=== PATIENT | male | born 1980 | race Caucasian/White ===

== ENCOUNTER → 2017-03-05 | Outpatient (CLI) | payer MEDICAID ==
[~2017-03-05] MED LIST: ACC15GT EXT; ACC15GT TOP; AZIT-21 PO; CPR500T PO; DEXALENT PO; ESOM20CA32 PO; HYDR-229 PO; HYDR-757; HYDR1TAB PO; LEVO150T6; LEVO175T2 PO; LEVO75TA57; LTRS15C TOP; MAGN-47; NFPRILOC40 PO; NST15O TOP; NYST15CR3 TP; OMEP1CAP10; PEG250PW; PRED20TA PO; PRM25T PO; SCR1T1; SULF-222 PO; VALA100033 PO
--- NOTE | 2017-03-05 14:59 | Diagnostic Imaging Report ---
PROCEDURE: CT abdomen without contrast. TECHNIQUE: Multiple contiguous axial images were obtained through the abdomen without the use of intravenous contrast. INDICATION: Abdominal pain. Status post hernia repair. FINDINGS: The lung bases appear clear. The liver, the spleen, the pancreas, and adrenal glands appear unremarkable. There is a 3 mm stone in the lower pole of the right kidney. No hydronephrosis. The abdominal aorta is normal in caliber. No para-aortic significantly enlarged lymph nodes are seen. There is suggestion of hernia repair with mesh in the supraumbilical region. There is slight stranding seen at this site presumably related to scarring and mild bulge anteriorly as well is seen without recurrence of hernia identified. The visualized bowel loops within the abdomen demonstrate no significant abnormality. IMPRESSION: 1. There is evidence of ventral hernia repair with mesh with mild anterior bulge along its supraumbilical region and stranding, presumably related to scarring with no evidence of hernia recurrence. 2. A 3 mm nonobstructive stone in the right kidney. Dictated by: Dictated on workstation # [id number]
== END ==
LOC: RAD 12:22
PROVIDERS: ATTEND Surgery
DX: R10.33 Periumbilical pain (principal); N20.0 Calculus of kidney; Z98.890 Other specified postprocedural states
CPT/HCPCS: 74150

== ENCOUNTER 2017-06-14 20:01 | Emergency (ER) | payer MEDICAID ==
[~2017-06-14] VITALS: Ht 167.6 cm; Wt 147.4 kg
--- OUTSIDE RECORDS SUMMARY | 2017-06-14 20:08 | XMS REPORT | Continuity of Care Document ---
Author Author [facility] Organization [facility] Address Unknown Phone Unavailable Allergies Active Description Code Type Severity Reaction Onset Reported/Identified Relationship to Patient Clinical Status Yes iodine [id number] Drug Allergy Moderate HIVES 04/22/2006 Medications There is no data. Problems Date Dx Coded Attending Type Code Diagnosis Diagnosed By 10/20/2009 Ot 787.91 10/20/2009 Ot 789.09 10/31/2009 Ot 553.21 11/16/2009 Ot 591 11/16/2009 Ot 592.1 11/16/2009 Ot 787.03 05/02/2010 Ot 598.9 05/02/2010 Ot 607.1 09/06/2010 Ot 278.00 09/06/2010 Ot 530.81 09/06/2010 Ot 553.3 09/16/2011 Ot 054.10 GENITAL HERPES NOS 09/16/2011 Ot 789.09 ABDOMINAL PAIN, OTHER SPECIFIED SITE 08/27/2012 Ot 553.20 VENTRAL HERNIA NOS 08/27/2012 Ot V74.8 SCREEN- BACTERIAL DIS NEC 09/01/2012 Ot 792.1 ABN FIND- STOOL CONTENTS 11/26/2012 ALEXANDRE MUNSON DO Ot 607.89 DISORDER OF PENIS NEC 11/13/2013 MARLYN ROSA, MOLLY Hicks Ot 054.10 GENITAL HERPES NOS 11/13/2013 MOLLY CLINE MD Ot 244.9 HYPOTHYROIDISM NOS 11/13/2013 MOLLY CLINE MD Ot 278.00 OBESITY, NOS 11/13/2013 MOLLY CLINE MD Ot 530.81 ESOPHAGEAL REFLUX 11/13/2013 MOLLY CLINE MD Ot 553.3 DIAPHRAGMATIC HERNIA 11/13/2013 MOLLY CLINE MD Ot 607.1 BALANOPOSTHITIS 11/13/2013 MOLLY CLINE MD Ot 608.9 MALE GENITAL DIS NOS 11/13/2013 MOLLY CLINE MD Ot V85.43 BODY MASS INDEX 50.0-59.9, ADULT 11/17/2013 RADHA ROSA, KRYS Yadav Ot 789.00 ABDOMINAL PAIN, UNSPECIFIED SITE 11/17/2013 RADHA ROSA, KRYS Yadav Ot V57.1 PHYSICAL THERAPY NEC 11/21/2014 CLARA OJEDA FINANCIAL ASSISTANCE ADVISOR Ot 786.2 COUGH 01/02/2015 Ot 553.21 01/02/2015 Ot V72.83 01/02/2015 Ot V74.8 01/02/2015 Ot 598.9 01/02/2015 Ot 607.1 01/02/2015 Ot V72.63 01/02/2015 Ot 789.03 01/02/2015 Ot 553.1 01/02/2015 Ot 553.3 01/02/2015 Ot 571.8 01/02/2015 Ot 789.00 01/02/2015 Ot 553.20 01/02/2015 Ot V72.63 01/02/2015 Ot V74.8 01/02/2015 CLARA OJEDA FINANCIAL ASSISTANCE ADVISOR Ot 682.6 CELLULITIS OF LEG 01/02/2015 CLARA OJEDA FINANCIAL ASSISTANCE ADVISOR Ot 709.9 SKIN DISORDER NOS 08/12/2015 Ot 598.9 08/12/2015 Ot 607.1 08/12/2015 Ot V72.63 08/12/2015 Ot 789.03 08/12/2015 Ot 553.1 08/12/2015 Ot 553.3 08/12/2015 Ot 571.8 08/12/2015 Ot 789.00 08/12/2015 Ot 553.20 08/12/2015 Ot V72.63 08/12/2015 Ot V74.8 08/24/2015 RADHA ROSA, KRYS Yadav Ot R10.30 03/05/2017 Ot 553.1 UMBILICAL HERNIA 03/05/2017 Ot 553.3 DIAPHRAGMATIC HERNIA 03/05/2017 Ot 571.8 CHRONIC LIVER DIS NEC 03/05/2017 Ot 789.00 ABDOMINAL PAIN, UNSPECIFIED SITE 03/05/2017 Ot 553.20 VENTRAL HERNIA NOS 03/05/2017 Ot V72.63 PRE- PROCEDURAL LABORATORY EXAMINATION 03/05/2017 Ot V74.8 SCREEN- BACTERIAL DIS NEC 03/05/2017 RADHA ROSA, KRYS Yadav Ot R10.30 LOWER ABDOMINAL PAIN, UNSPECIFIED 03/06/2017 GARCIA KRYS ROSA Ot N20.0 CALCULUS OF KIDNEY 03/06/2017 KRYS GARCIA MD Ot R10.33 PERIUMBILICAL PAIN 03/06/2017 KRYS GARCIA MD Ot Z98.890 OTHER SPECIFIED POSTPROCEDURAL STATES 03/27/2017 KRYS GARCIA MD Ot N20.0 CALCULUS OF KIDNEY 03/27/2017 KRYS GARCIA MD Ot R10.33 PERIUMBILICAL PAIN 03/27/2017 KRYS GARCIA MD Ot Z98.890 OTHER SPECIFIED POSTPROCEDURAL STATES Procedures There is no data. Results There is no data. Encounters ACCT No. Visit Date/Time Discharge Status Pt. Type Provider Facility Loc./Unit Complaint [id number] 03/05/2017 12:22:00 03/05/2017 23:59:59 CLS Outpatient KRYS GARCIA MD [facility] RAD UMBILICAL PAIN R10.33 [id number] 08/12/2015 10:57:00 08/12/2015 23:59:59 CLS Outpatient KRYS GARCIA MD [facility] RAD ABD PAIN [id number] 01/02/2015 21:49:00 01/02/2015 22:36:00 DIS Emergency CLARA OJEDA APRN [facility] ER PAIN/SWELLING LEFT LEG [id number] 11/21/2014 18:11:00 11/21/2014 19:24:00 DIS Emergency CLARA OJEDA APRN [facility] ER COUGH;DIZZINESS [id number] 11/05/2013 12:54:00 11/17/2013 13:55:00 DIS Outpatient KRYS GARCIA MD [facility] REHAB ABDOMINAL PAIN [id number] 11/13/2013 20:11:00 11/13/2013 20:35:00 DIS Emergency MOLLY CLINE MD [facility] ER GENITAL PAIN [id number] 01/24/2013 10:06:00 01/24/2013 23:59:59 CLS Outpatient [id number] 11/25/2012 22:05:00 11/26/2012 01:59:00 DIS Emergency ALEXANDRE MUNSON DO [facility] ER URINARY PAIN [id number] 01/02/2015 21:48:00 Document Registration [id number] 09/01/2012 15:33:00 Document Registration [id number] 08/27/2012 07:56:00 Document Registration [id number] 08/04/2012 09:16:00 Document Registration [id number] 07/08/2012 08:31:00 Document Registration [id number] 09/15/2011 20:41:00 Document Registration [id number] 05/31/2011 15:10:00 Document Registration [id number] 09/06/2010 06:44:00 Document Registration [id number] 05/02/2010 05:39:00 Document Registration [id number] 04/27/2010 10:31:00 Document Registration [id number] 11/16/2009 12:01:00 Document Registration [id number] 10/31/2009 05:48:00 Document Registration [id number] 10/27/2009 11:39:00 Document Registration [id number] 10/19/2009 21:43:00 Document Registration
[2017-06-14] MEDS ORDERED: COLE1TAB (20:21)
[2017-06-14] MEDS ORDERED: PANT40TA3 (20:21)
--- NOTE | 2017-06-14 20:33 | ED GU-Male ---
General Chief Complaint: -Male Stated Complaint: URINATING BLOOD Nursing Triage Note: HEMATURIA/DYSURIA Source: patient, other (ex-) Exam Limitations: no limitations History of Present Illness Time seen by provider: 20:25 Initial Comments Patient presents to ER by private conveyance with a chief complaint that this afternoon around 4:00 when he went to the bathroom he was sitting down and when he got up he noticed some red blood tinged water in the stool. His bowel movement he was not constipated nor straining for it and did not have any blood mixed in it. He does not know if he has any history of hemorrhoids. He denies any recent history of constipation says he has a bowel movement about every day or so and does not have to work hard [place]. He does not have any dysuria or discharge. He had his ex- come over and examine him and she said there were some cuts on his penis behind the metzger. He says he had a colonoscopy about one month ago and was told everything was normal. He is not having any rectal pain has not seen any blood when wiping. He is not sexually active but prefers company of women. Allergies and Home Medications Allergies Coded Allergies: iodine (Unverified Allergy, Intermediate, HIVES, 04/22/06) PT. AND FAMILY PRESENT, BELIEVE THE HIVES WERE AFTER AN IV IODINE PROCEDURE AND NOT TOPICAL Home Medications Colestipol HCl 1 Gm Tablet, (Reported) Levothyroxine Sodium 150 Mcg Tablet, #30 (Reported) Nystatin 1 Each Powder.ea., 1 EACH MC QID for 10 Days, #1 Ref 0 Prescribed by: IVANNA HUANG on 06/14/172107 Pantoprazole Sodium 40 Mg Tablet., (Reported) Sulfamethoxazole/Trimethoprim 1 Each Tablet, 1 EACH PO BID for 7 Days, #14 Ref 0 Prescribed by: IVANNA HUANG on 06/14/172107 Constitutional: No chills, No diaphoresis, No fever, No malaise EENTM: No hearing loss, No ear pain Respiratory: No cough, No short of breath Cardiovascular: No chest pain, No palpitations, No syncope Gastrointestinal: No abdominal pain, No constipation, No diarrhea, No nausea, No vomiting Genitourinary: denies burning, denies discharge Musculoskeletal: No back pain, No joint pain Skin: No pruritus, No rash Past Tjjaief-Wqrbvy-Gyesxa Hx Patient Social History Alcohol Use: Denies Use Recreational Drug Use: No Smoking Status: Current Everyday Smoker Type Used: Cigarettes 2nd Hand Smoke Exposure: Yes Recent Foreign Travel: No Contact w/Someone Who Travel: No Recent Infectious Disease Expo: No Recent Hopitalizations: No Immunizations Up To Date Date of Influenza Vaccine: Aug 15, 2012 Seasonal Allergies Seasonal Allergies: No Surgeries History of Surgeries: Yes (CIRCUMCISED/RECIRCUMCISED) Respiratory History of Respiratory Disorde: No Cardiovascular History of Cardiac Disorders: No Neurological History of Neurological Disord: No Reproductive System Sexually Transmitted Disease: Yes (HERPES) Genitourinary History of Genitourinary Disor: No Gastrointestinal History of Gastrointestinal Di: Yes Gastrointestinal Disorders: Gastroesophageal Reflux, Hiatal Hernia Musculoskeletal History of Musculoskeletal Dis: No Endocrine History of Endocrine Disorders: Yes Endocrine Disorders: Hypothyroidsim HEENT History of HEENT Disorders: No Cancer History of Cancer: No Psychosocial History of Psychiatric Problem: No Integumentary History of Skin or Integumenta: Yes Skin/Integumentary Disorders: Herpes Blood Transfusions History of Blood Disorders: No Physical Exam Vital Signs Vital Sign - Last 12Hours 06/14/17 20:15 Temp 98.2 Pulse 84 Resp 16 B/P (MAP) 114/79 (91) Pulse Ox 98 O2 Delivery Room Air Capillary Refill : Less Than 3 Seconds General Appearance: WD/WN, no apparent distress, obese HEENT: PERRL/EOMI, pharynx normal Cardiovascular: normal peripheral pulses, regular rate, rhythm Respiratory: no respiratory distress, no accessory muscle use Gastrointestinal: normal bowel sounds, non tender, soft, no organomegaly, other (obese) Rectal: normal exam, normal rectal tone, heme negative stool, No mass, other ( soft stool in the rectal vault) Male: No testicular tenderness, other (distal third of the penis and metzger is erythematous with caseous, malodorous smegma. No discharge, erythematous portion of penis is tender to palpation.) Genital/Rectal: normal rectal exam, heme negative stool, normal rectal tone, other (circumcised male) Back: normal inspection, no CVA tenderness Extremities: normal inspection, normal capillary refill Neurologic/Psychiatric: alert, normal mood/affect, oriented x 3 Skin: warm/dry, damp (around the penis) Progress/Results/Core Measures Suspected Sepsis Recent Fever Within 48 Hours: No Infection Criteria Present: None New/Unexplained Altered Menta: No Sepsis Screen: No Definite Risk Sepsis Diagnosis: SIRS Temperature:98.2 Pulse: 84 Respiratory Rate: 16 Laboratory Tests 06/14/17 21:05: White Blood Count 9.0 Blood Pressure 114 /79 Mean: 91 Laboratory Tests 06/14/17 21:05: Creatinine 1.05, Platelet Count 210, Total Bilirubin 0.7 Results/Orders Lab Results Laboratory Tests Test 06/14/17 20:20 06/14/17 21:05 Range/Units Urine Color YELLOW Urine Clarity CLEAR Urine pH 6 5-9 Urine Specific [place] 1.015 L 1.016-1.022 Urine Protein NEGATIVE NEGATIVE Urine Glucose (UA) NEGATIVE NEGATIVE Urine Ketones NEGATIVE NEGATIVE Urine Nitrite NEGATIVE NEGATIVE Urine Bilirubin NEGATIVE NEGATIVE Urine Urobilinogen NORMAL NORMAL MG/DL Urine Leukocyte Esterase 1+ H NEGATIVE Urine RBC (Auto) 4+ H NEGATIVE Urine RBC 25-50 H /HPF Urine WBC 2-5 /HPF Urine Squamous Epithelial Cells 2-5 /HPF Urine Crystals NONE /LPF Urine Bacteria NONE /HPF Urine Casts NONE /LPF Urine Mucus SMALL H /LPF Urine Culture Indicated NO White Blood Count 9.0 4.3-11.0 10^3/uL Red Blood Count 4.63 4.35-5.85 10^6/uL Hemoglobin 15.6 13.3-17.7 G/DL Hematocrit 44 40-54 % Mean Corpuscular Volume 96 80-99 FL Mean Corpuscular Hemoglobin 34 25-34 PG Mean Corpuscular Hemoglobin Concent 35 32-36 G/DL Red Cell Distribution Width 13.3 10.0-14.5 % Platelet Count 210 130-400 10^3/uL Mean Platelet Volume 10.2 7.4-10.4 FL Neutrophils (%) (Auto) 65 42-75 % Lymphocytes (%) (Auto) 25 12-44 % Monocytes (%) (Auto) 7 0-12 % Eosinophils (%) (Auto) 3 0-10 % Basophils (%) (Auto) 0 0-10 % Neutrophils # (Auto) 5.8 1.8-7.8 X 10^3 Lymphocytes # (Auto) 2.2 1.0-4.0 X 10^3 Monocytes # (Auto) 0.6 0.0-1.0 X 10^3 Eosinophils # (Auto) 0.3 0.0-0.3 10^3/uL Basophils # (Auto) 0.0 0.0-0.1 10^3/uL Sodium Level 138 135-145 MMOL/L Potassium Level 4.2 3.6-5.0 MMOL/L Chloride Level 103 98-107 MMOL/L Carbon Dioxide Level 23 21-32 MMOL/L Anion Gap 12 5-14 MMOL/L Blood Urea Nitrogen 10 7-18 MG/DL Creatinine 1.05 0.60-1.30 MG/DL Estimat Glomerular Filtration Rate > 60 BUN/Creatinine Ratio 10 Glucose Level 97 70-105 MG/DL Calcium Level 9.2 8.5-10.1 MG/DL Total Bilirubin 0.7 0.1-1.0 MG/DL Aspartate Amino Transf (AST/SGOT) 44 H 5-34 U/L Alanine Aminotransferase (ALT/SGPT) 81 H 0-55 U/L Alkaline Phosphatase 75 40-136 U/L Total Protein 7.8 6.4-8.2 GM/DL Albumin 3.9 3.2-4.5 GM/DL My Orders Orders - IVANNA HUANG Ua Culture If Indicated (06/14/17 20:04) Occult Blood Stool (06/14/17 20:47) Neis Daniel Dna Urine Test (06/14/17 21:00) Chlamydia Dna Urine Test (06/14/17 21:00) Cbc With Automated Diff (06/14/17 21:00) Comprehensive Metabolic Panel (06/14/17 21:00) Vital Signs/I&O Vital Sign - Last 12Hours 06/14/17 20:15 Temp 98.2 Pulse 84 Resp 16 B/P (MAP) 114/79 (91) Pulse Ox 98 O2 Delivery Room Air Capillary Refill : Less Than 3 Seconds Blood Pressure Mean: 91 Progress Note : Time: 21:04 Progress Note Suspect tinea cruris and will prescribe a powder as he has moisture issues in that region. He does have red blood cells seen in the blood but not microscopically and stool so if his laboratory workup is unremarkable then this can be worked up outpatient by his primary care doctor. I have discussed this with the patient and he is okay with this plan. We will empirically cover him with antibiotics and see if this makes any difference in his symptoms. Departure Impression Impression: Primary Impression: Hematuria Qualified Codes: R31.0 - Gross hematuria Additional Impressions: Urinary tract infection Qualified Codes: N30.01 - Acute cystitis with hematuria Tinea cruris Disposition: HOME, SELF-CARE Condition: Stable Departure-Patient Inst. Decision time for Depature: 21:53 Referrals: ARLET BRADEN MD (PCP/Family) Primary Care Physician Patient Instructions: Blood in the Urine (Hematuria), Adult (DC) Add. Discharge Instructions: Drink plenty of fluids and follow-up next week with your primary care physician. We will cover you with some antibiotics to be taken 1 tablet twice a day for 7 days. You will need to apply the nystatin powder to the red, moist irritated areas in her groin 4 times daily as needed. Clean thoroughly with soap and water and allow the area to dry well before putting clothes on. All discharge instructions reviewed with patient and/or family. Voiced understanding. Scripts Sulfamethoxazole/Trimethoprim (Bactrim Ds Tablet) 1 Each Tablet 1 EACH PO BID for 7 Days, #14 TAB 0 Refills Prov: IVANNA HUANG 06/14/17 Nystatin (Nystatin) 1 Each Powder.ea. 1 EACH MC QID for 10 Days, #1 UNIT 0 Refills Prov: IVANNA HUANG 06/14/17 Copy Copies To 1: CLARITZA MCLAUGHLIN DO IVANNA HUANG Jun 14, 2017 20:32
[2017-06-14 20:46] LABS: BILIRUBIN,URINE NEGATIVE (NEGATIVE); CLARITY,URINE CLEAR; COLOR,URINE YELLOW; GLUCOSE, URINE (UA) NEGATIVE (NEGATIVE); KETONES,URINE NEGATIVE (NEGATIVE); LEUKOCYTE ESTERASE ,URINE 1+ (NEGATIVE); NITRITE,URINE NEGATIVE (NEGATIVE); PH,URINE 6 (5-9); PROTEIN,URINE NEGATIVE (NEGATIVE); UROBILINOGEN,URINE NORMAL (NORMAL)
[2017-06-14 20:53] LABS: RBC,URINE 25-50 /HPF
[2017-06-14] MEDS ORDERED: SULF1TAB35 PO (21:08)
[2017-06-14] MEDS ORDERED: NYST1POW22 MC (21:08)
[2017-06-14 21:19] LABS: BASOPHILS % (AUTO) 0 % (0-10); EOSINOPHILS # (AUTO) 0.3 10^3/uL (0.0-0.3); EOSINOPHILS % (AUTO) 3 % (0-10); HEMATOCRIT 44 % (40-54); HEMOGLOBIN 15.6 G/DL (13.3-17.7); LYMPHOCYTES # (AUTO) 2.2 X 10^3 (1.0-4.0); LYMPHOCYTES % (AUTO) 25 % (12-44); MEAN CORPUSCULAR HEMOGLOBIN 34 PG (25-34); MEAN CORPUSCULAR HGB CONC 35 G/DL (32-36); MEAN CORPUSCULAR VOLUME 96 FL (80-99); MEAN PLATELET VOLUME 10.2 FL (7.4-10.4); MONOCYTES # (AUTO) 0.6 X 10^3 (0.0-1.0); MONOCYTES % (AUTO) 7 % (0-12); NEUTROPHILS # (AUTO) 5.8 X 10^3 (1.8-7.8); NEUTROPHILS % (AUTO) 65 % (42-75); PLATELET COUNT 210 10^3/uL (130-400); RED BLOOD COUNT 4.63 10^6/uL (4.35-5.85); RED CELL DISTRIBUTION WIDTH 13.3 % (10.0-14.5)
[2017-06-14 21:36] LABS: ALANINE AMINOTRANSFERASE 81 U/L (0-55); ALBUMIN 3.9 GM/DL (3.2-4.5); ALKALINE PHOSPHATASE 75 U/L (40-136); BILIRUBIN,TOTAL 0.7 MG/DL (0.1-1.0); BUN/CREATININE RATIO 10; CALCIUM 9.2 MG/DL (8.5-10.1); CARBON DIOXIDE 23 MMOL/L (21-32); CHLORIDE 103 MMOL/L (98-107); CREATININE SERUM 1.05 MG/DL (0.60-1.30); GFR ESTIMATED > 60; GLUCOSE 97 MG/DL (70-105); POTASSIUM 4.2 MMOL/L (3.6-5.0); SODIUM 138 MMOL/L (135-145); TOTAL PROTEIN 7.8 GM/DL (6.4-8.2)
[2017-06-14 21:59] VITALS: BP 112/76
== END 2017-06-14 21:56 | disposition home or self-care (01) ==
LOC: EDUNIT# 20:01 → ER 20:03
DX: N39.0 Urinary tract infection, site not specified (principal); B35.6 Tinea cruris; F17.210 Nicotine dependence, cigarettes, uncomplicated; K21.9 Gastro-esophageal reflux disease without esophagitis; E03.9 Hypothyroidism, unspecified; Z86.19 Personal history of other infectious and parasitic diseases; Z87.19 Personal history of other diseases of the digestive system
CPT/HCPCS: 36415; 80053; 81000; 85025; 87491; 87591; 99283

== ENCOUNTER 2019-04-27 07:27 | Emergency (ER) | payer MEDICAID ==
[~2019-04-27] VITALS: Ht 167 cm; Wt 147.9 kg
[~2019-04-27 07:27] MED LIST changes: +COLE1TAB; +NYST1POW22 MC; +PANT40TA3; +SULF1TAB35 PO
[2019-04-27] MEDS ORDERED: LACTATED RINGERS 1,000 ML IV ONE (07:35)
[2019-04-27] MEDS ORDERED: ONDANSETRON 4 MG/2 ML (SDV) Z0FRAN IVP ONE (07:45)
[2019-04-27 07:55] LABS: BASOPHILS % (AUTO) 0 % (0-10); EOSINOPHILS % (AUTO) 0 % (0-10); HEMATOCRIT 42 % (40-54); HEMOGLOBIN 14.2 G/DL (13.3-17.7); LYMPHOCYTES # (AUTO) 0.9 X 10^3 (1.0-4.0); LYMPHOCYTES % (AUTO) 9 % (12-44); MEAN CORPUSCULAR HEMOGLOBIN 32 PG (25-34); MEAN CORPUSCULAR HGB CONC 34 G/DL (32-36); MEAN CORPUSCULAR VOLUME 95 FL (80-99); MEAN PLATELET VOLUME 9.1 FL (7.4-10.4); MONOCYTES % (AUTO) 10 % (0-12); NEUTROPHILS # (AUTO) 8.8 X 10^3 (1.8-7.8); NEUTROPHILS % (AUTO) 82 % (42-75); PLATELET COUNT 244 10^3/uL (130-400); RED CELL DISTRIBUTION WIDTH 13.2 % (10.0-14.5); WHITE BLOOD COUNT 10.7 10^3/uL (4.3-11.0)
[2019-04-27 08:09] LABS: BILIRUBIN,URINE NEGATIVE (NEGATIVE); CLARITY,URINE SL CLOUDY; COLOR,URINE DARK YELLOW; GLUCOSE, URINE (UA) NEGATIVE (NEGATIVE); KETONES,URINE NEGATIVE (NEGATIVE); LEUKOCYTE ESTERASE ,URINE 2+ (NEGATIVE); NITRITE,URINE POSITIVE (NEGATIVE); PH,URINE 6.5 (5-9); PROTEIN,URINE 1+ (NEGATIVE)
[2019-04-27 08:14] LABS: ALANINE AMINOTRANSFERASE 41 U/L (0-55); ALBUMIN 3.8 GM/DL (3.2-4.5); ALKALINE PHOSPHATASE 80 U/L (40-136); AMYLASE 26 U/L (25-125); BILIRUBIN,TOTAL 2.4 MG/DL (0.1-1.0); BUN/CREATININE RATIO 9; CALCIUM 8.9 MG/DL (8.5-10.1); CARBON DIOXIDE 24 MMOL/L (21-32); CHLORIDE 101 MMOL/L (98-107); CREATININE SERUM 0.96 MG/DL (0.60-1.30); GFR ESTIMATED > 60; GLUCOSE 129 MG/DL (70-105); LIPASE 7 U/L (8-78); MAGNESIUM 1.8 MG/DL (1.6-2.4); POTASSIUM 4.2 MMOL/L (3.6-5.0); SODIUM 135 MMOL/L (135-145); TOTAL PROTEIN 7.4 GM/DL (6.4-8.2)
[2019-04-27 08:20] LABS: BACTERIA,URINE LARGE /HPF; SQUAMOUS EPITHELIAL CELL,UR 0-2 /HPF; WBC,URINE 50-100 /HPF
[2019-04-27 08:27] LABS: AMPHETAMINE SCREEN, URINE NEGATIVE (NEGATIVE); BARBITURATE SCREEN URINE NEGATIVE (NEGATIVE); BENZODIAZEPINES SCREEN URINE NEGATIVE (NEGATIVE); CANNABINOID SCREEN, URINE NEGATIVE (NEGATIVE); COCAINE SCREEN URINE NEGATIVE (NEGATIVE); METHADONE STAT NEGATIVE (NEGATIVE); METHAMPHETAMINE SCREEN URINE S NEGATIVE (NEGATIVE); OPIATE SCREEN URINE NEGATIVE (NEGATIVE); OXYCODONE STAT NEGATIVE (NEGATIVE); PROPOXYPHENE STAT NEGATIVE (NEGATIVE); TRICYCLIC ANTIDEPRESSANTS SCRE NEGATIVE (NEGATIVE)
[2019-04-27] MEDS ORDERED: cefTRIAXone FOR IV USE 1,000 MG in WATER (STERILE) FOR INJECTION 10 ML IV ONE (08:30)
--- NOTE | 2019-04-27 10:23 | Diagnostic Imaging Report ---
PROCEDURE: CT urinary tract, rule out kidney stone. TECHNIQUE: Multiple contiguous axial images were obtained through the abdomen and pelvis without the use of intravenous contrast. Auto Exposure Controls were utilized during the CT exam to meet ALARA standards for radiation dose reduction. INDICATION: Mid abdominal pain and nausea for 24 hours. COMPARISON: Correlation is made with prior CT from 03/05/2017. FINDINGS: The lung bases are clear. No focal liver masses identified. The gallbladder is surgically absent. No biliary ductal dilatation is seen. The pancreas and spleen are unremarkable. No adrenal mass is identified. Previously noted small calculus in lower pole of right kidney is no longer visualized. No left renal calculi or ureteral calculi are identified. There is very mild left perinephric inflammatory stranding. No perinephric fluid collection is identified. Aorta is non-aneurysmal. The small and large bowel loops appear to be nonobstructed. Appendix is visualized and unremarkable. No free fluid or loculated fluid collection is identified. The bladder, prostate, and seminal vesicles are unremarkable. The bony structures are nonacute. IMPRESSION: 1. Essentially unremarkable CT of the abdomen and pelvis with the exception of mild left perinephric inflammatory stranding. This can be seen with urinary tract inflammatory process such as pyelonephritis. Correlation with urinalysis is recommended. No definite ureteral calculi or hydronephrosis is detected. No other significant abnormality is seen. Dictated by: Dictated on workstation # [id number]
--- NOTE | 2019-04-27 11:06 | Diagnostic Imaging Report ---
INDICATION: Cramps, pain COMPARISON: CT from same date TECHNIQUE: 4 radiographs of the abdomen and chest dated 04/27/2019 FINDINGS: The cardiac silhouette is within normal limits in size. No significant pulmonary vascular congestion. Retrocardiac density felt related to a hiatal hernia is again noted. The lungs otherwise appear clear. No pleural effusion. No pneumothorax. No acute osseous abnormality within the chest. Surgical clips within the right upper quadrant of the abdomen. Scattered loops of bowel are present without dilated loops of large or small bowel. No differential air-fluid levels. No free air. No suspicious calcifications overlying the renal shadows. No acute osseous abnormality. IMPRESSION: Small hiatal hernia. Additional findings as described above without evidence of bowel obstruction or free air. Dictated by: Dictated on workstation # [id number]
[2019-04-27] MEDS ORDERED: LEVO500T2 PO (11:22)
--- NOTE | 2019-04-27 11:22 | ED Abdominal Pain ---
General Chief Complaint: Abdominal/GI Problems Stated Complaint: VOMITING Nursing Triage Note: Patient ambulatory to ER room 6 with complaint of vomiting x 1 episode and diarrhea last night. Patient is HUERTA x3 and denies any abdominal pain. Patient states he has had cramping with the diarrhea. Patient also complains of small amount of bleeding to the umbulicus. There is a small amount of dried blood present. Sepsis Screen: No Definite Risk Source of Information: Patient History of Present Illness Date Seen by Provider: Apr 27, 2019 Time Seen by Provider: 07:35 Initial Comments PT ARRIVES VIA POV FROM HOME STATES HE HAS HAD NAUSEA/VOMITING/DIARRHEA SINCE YESTERDAY Allergies and Home Medications Allergies Coded Allergies: iodine (Unverified Allergy, Intermediate, HIVES, 04/22/06) PT. AND FAMILY PRESENT, BELIEVE THE HIVES WERE AFTER AN IV IODINE PROCEDURE AND NOT TOPICAL Home Medications Levofloxacin 500 Mg Tablet, 500 MG PO DAILY Prescribed by: ALEXANDRE MUNSON on 04/27/19 1122 Nystatin 1 Each Powder.ea., 1 EACH MC QID Prescribed by: IVANNA HUANG on 06/14/172107 Sulfamethoxazole/Trimethoprim 1 Each Tablet, 1 EACH PO BID Prescribed by: IVANNA HUANG on 06/14/172107 Past Fyobiwm-Ummkjb-Tejsva Hx Patient Social History Alcohol Use: Denies Use Recreational Drug Use: No Smoking Status: Never a Smoker Type Used: Cigarettes 2nd Hand Smoke Exposure: No Recent Foreign Travel: No Contact w/Someone Who Travel: No Recent Infectious Disease Expo: No Recent Hopitalizations: No Physical Abuse: No Sexual Abuse: No Mistreated: No Fear: No Immunizations Up To Date PED Vaccines UTD: Yes Date of Influenza Vaccine: Mar 17, 2019 Seasonal Allergies Seasonal Allergies: No Past Medical History Surgeries: Yes (CIRCUMCISED/RECIRCUMCISED, hernia repair) Respiratory: No Cardiac: No Neurological: No Sexually Transmitted Disease: Yes (HERPES) Genitourinary: No Gastrointestinal: Yes Gastroesophageal Reflux, Hiatal Hernia Musculoskeletal: No Endocrine: Yes Hypothyroidsim HEENT: No Cancer: No Psychosocial: No Integumentary: Yes Herpes Blood Disorders: No Physical Exam Vital Signs Vital Signs - First Documented 04/27/19 07:35 Temp 37.5 Pulse 107 Resp 18 B/P (MAP) 128/94 (105) Pulse Ox 95 O2 Delivery Room Air Capillary Refill : Less Than 3 Seconds Height/Weight/BMI Height: 5'6" Weight: 325lbs. oz. 147.021250aw; 53.00 BMI Method:Stated Progress/Results/Core Measures Results/Orders Lab Results Laboratory Tests Test 04/27/19 07:48 04/27/19 08:00 Range/Units White Blood Count 10.7 4.3-11.0 10^3/uL Red Blood Count 4.39 4.35-5.85 10^6/uL Hemoglobin 14.2 13.3-17.7 G/DL Hematocrit 42 40-54 % Mean Corpuscular Volume 95 80-99 FL Mean Corpuscular Hemoglobin 32 25-34 PG Mean Corpuscular Hemoglobin Concent 34 32-36 G/DL Red Cell Distribution Width 13.2 10.0-14.5 % Platelet Count 244 130-400 10^3/uL Mean Platelet Volume 9.1 7.4-10.4 FL Neutrophils (%) (Auto) 82 H 42-75 % Lymphocytes (%) (Auto) 9 L 12-44 % Monocytes (%) (Auto) 10 0-12 % Eosinophils (%) (Auto) 0 0-10 % Basophils (%) (Auto) 0 0-10 % Neutrophils # (Auto) 8.8 H 1.8-7.8 X 10^3 Lymphocytes # (Auto) 0.9 L 1.0-4.0 X 10^3 Monocytes # (Auto) 1.0 0.0-1.0 X 10^3 Eosinophils # (Auto) 0.0 0.0-0.3 10^3/uL Basophils # (Auto) 0.0 0.0-0.1 10^3/uL Sodium Level 135 135-145 MMOL/L Potassium Level 4.2 3.6-5.0 MMOL/L Chloride Level 101 98-107 MMOL/L Carbon Dioxide Level 24 21-32 MMOL/L Anion Gap 10 5-14 MMOL/L Blood Urea Nitrogen 9 7-18 MG/DL Creatinine 0.96 0.60-1.30 MG/DL Estimat Glomerular Filtration Rate > 60 BUN/Creatinine Ratio 9 Glucose Level 129 H 70-105 MG/DL Calcium Level 8.9 8.5-10.1 MG/DL Corrected Calcium 9.1 8.5-10.1 MG/DL Magnesium Level 1.8 1.6-2.4 MG/DL Total Bilirubin 2.4 H 0.1-1.0 MG/DL Aspartate Amino Transf (AST/SGOT) 25 5-34 U/L Alanine Aminotransferase (ALT/SGPT) 41 0-55 U/L Alkaline Phosphatase 80 40-136 U/L Total Protein 7.4 6.4-8.2 GM/DL Albumin 3.8 3.2-4.5 GM/DL Amylase Level 26 25-125 U/L Lipase 7 L 8-78 U/L Urine Color DARK YELLOW Urine Clarity SL CLOUDY Urine pH 6.5 5-9 Urine Specific [place] 1.015 L 1.016-1.022 Urine Protein 1+ H NEGATIVE Urine Glucose (UA) NEGATIVE NEGATIVE Urine Ketones NEGATIVE NEGATIVE Urine Nitrite POSITIVE NEGATIVE Urine Bilirubin NEGATIVE NEGATIVE Urine Urobilinogen >=8.0 < = 1.0 MG/DL Urine Leukocyte Esterase 2+ H NEGATIVE Urine RBC (Auto) 1+ H NEGATIVE Urine RBC 5-10 H /HPF Urine WBC 50-100 H /HPF Urine Squamous Epithelial Cells 0-2 /HPF Urine Crystals NONE /LPF Urine Bacteria LARGE H /HPF Urine Casts NONE /LPF Urine Mucus NEGATIVE /LPF Urine Culture Indicated YES Urine Opiates Screen NEGATIVE NEGATIVE Urine Oxycodone Screen NEGATIVE NEGATIVE Urine Methadone Screen NEGATIVE NEGATIVE Urine Propoxyphene Screen NEGATIVE NEGATIVE Urine Barbiturates Screen NEGATIVE NEGATIVE Ur Tricyclic Antidepressants Screen NEGATIVE NEGATIVE Urine Phencyclidine Screen NEGATIVE NEGATIVE Urine Amphetamines Screen NEGATIVE NEGATIVE Urine Methamphetamines Screen NEGATIVE NEGATIVE Urine Benzodiazepines Screen NEGATIVE NEGATIVE Urine Cocaine Screen NEGATIVE NEGATIVE Urine Cannabinoids Screen NEGATIVE NEGATIVE Micro Results Microbiology 04/27/19 Urine Culture - Preliminary, Resulted Gram Negative [place]lin My Orders Orders - ALEXANDRE MUNSON DO Ed Iv/Invasive Line Start (04/27/19 07:35) Monitor-Rhythm Ecg Trace Only (04/27/19 07:35) Amylase (04/27/19 07:35) Cbc With Automated Diff (04/27/19 07:35) Comprehensive Metabolic Panel (04/27/19 07:35) Drug Screen Stat (Urine) (04/27/19 07:35) Lipase (04/27/19 07:35) Magnesium (04/27/19 07:35) Ua Culture If Indicated (04/27/19 07:35) Ed Iv/Invasive Line Start (04/27/19 07:35) Lactated Ringers (Lr 1000 Ml Iv Solution (04/27/19 07:35) Ondansetron Injection (Zofran Injectio (04/27/19 07:45) Urine Culture (04/27/19 08:00) Ct Abd/Pelvis Wo(Kidney Stone) (04/27/19 08:28) Acute Abd Series (04/27/19 08:28) Ceftriaxone For Iv Use (Rocephin For I (04/27/19 08:30) Medications Given in ED Vital Signs/I&O 04/27/19 04/27/19 07:35 11:55 Temp 37.5 36.3 Pulse 107 117 Resp 18 16 B/P (MAP) 128/94 (105) 116/47 Pulse Ox 95 97 O2 Delivery Room Air Room Air Blood Pressure Mean: 105 POS Departure Impression Primary Impression: Urinary tract infection Disposition: 01 HOME, SELF-CARE Condition: Stable Departure-Patient Inst. Referrals: ARLET BRADEN MD (PCP/Family) Primary Care Physician Patient Instructions: Urinary Tract Infection, Adult (DC) Add. Discharge Instructions: LOTS OF CLEAR LIQUIDS TYLENOL AND MOTRIN NEEDED FOR PAIN FOLLOW UP WITH YOUR DR IN 3-4 DAYS IF NO BETTER All discharge instructions reviewed with patient and/or family. Voiced understanding. Scripts Levofloxacin (Levaquin) 500 Mg Tablet 500 MG PO DAILY for INFECTION, #10 TAB Prov: ALEXANDRE MUNSON DO 04/27/19 ALEXANDRE MUNSON DO Apr 27, 2019 11:22 POS
[2019-04-27 11:55] VITALS: BP 116/47
== END 2019-04-27 11:58 | disposition home or self-care (01) ==
LOC: EDUNIT# 07:27 → ER 07:28
DX: N39.0 Urinary tract infection, site not specified (principal); K21.9 Gastro-esophageal reflux disease without esophagitis; E03.9 Hypothyroidism, unspecified; Z88.8 Allergy status to other drugs, medicaments and biological substances
CPT/HCPCS: 36415; 74022; 74176; 80053; 80306; 81000; 82150; 83690; 83735; 85025; 87077; 87088; 87186

== ENCOUNTER 2022-08-22 16:41 | Emergency (ER) | payer MEDICARE, MEDICAID ==
[~2022-08-22] VITALS: Ht 167 cm; Wt 142.8 kg
[~2022-08-22 16:41] MED LIST changes: +LEVO500T2 PO; -PANT40TA3; +PANT40TA52; -SULF1TAB35 PO; +SULF1TAB38 PO
[2022-08-22 17:53] LABS: BASOPHILS % (AUTO) 0 % (0-10); EOSINOPHILS # (AUTO) 0.2 10^3/uL (0.0-0.3); EOSINOPHILS % (AUTO) 2 % (0-10); HEMATOCRIT 45 % (40-54); HEMOGLOBIN 15.6 g/dL (13.3-17.7); LYMPHOCYTES # (AUTO) 1.6 10^3/uL (1.0-4.0); LYMPHOCYTES % (AUTO) 18 % (12-44); MEAN CORPUSCULAR HEMOGLOBIN 32 pg (25-34); MEAN CORPUSCULAR HGB CONC 35 g/dL (32-36); MEAN CORPUSCULAR VOLUME 93 fL (80-99); MEAN PLATELET VOLUME 9.4 fL (9.0-12.2); MONOCYTES # (AUTO) 0.6 10^3/uL (0.0-1.0); MONOCYTES % (AUTO) 7 % (0-12); NEUTROPHILS # (AUTO) 6.6 10^3/uL (1.8-7.8); NEUTROPHILS % (AUTO) 73 % (42-75); PLATELET COUNT 288 10^3/uL (130-400)
[2022-08-22] MEDS ORDERED: FLEET ENEMA ADULT 1 EA BTL PR ONE (18:00)
--- NOTE | 2022-08-22 18:03 | ED Abdominal Pain ---
General Chief Complaint: Abdominal/GI Problems Stated Complaint: CONSTIPATION Nursing Triage Note: pt presents to ED with c/o consitpation x 2 days. pt states he took stool softeners yesterday to no avail. has not used any stool softeners/laxatives today. pt reports mild abdominal pain 08/24. Source of Information: Patient Exam Limitations: No Limitations History of Present Illness Date Seen by Provider: Aug 22, 2022 Time Seen by Provider: 18:02 Initial Comments Patient is a 42-year-old male who presents the ED with constipation. States last bowel movement was 3 days ago. Reports having rectal discomfort today while having a bowel movement. Denies of any bloody stools. Denies any vomi ting. Patient states he took 2 oral laxative softeners yesterday without much improvement. Has been eating prunes. Denies of any rectal pain. Denies fever, chills, headache, dizziness, chest pain, shortness of breath. History of hiatal hernia repair. Reports typically loose stools. Denies any fever or weight loss Allergies and Home Medications Allergies Coded Allergies: iodine (Unverified Allergy, Intermediate, HIVES, 04/22/06) PT. AND FAMILY PRESENT, BELIEVE THE HIVES WERE AFTER AN IV IODINE PROCEDURE AND NOT TOPICAL Patient Home Medication List Home Medication List Reviewed: Yes Colestipol HCl (Colestipol HCl) 1 Gm Tablet, (Reported) Entered as Reported by: KANG HASTINGS on 06/14/172020 Levofloxacin (Levaquin) 500 Mg Tablet, 500 MG PO DAILY Prescribed by: ALEXANDRE MUNSON on 04/27/19 112 Levothyroxine Sodium (Levothyroxine Sodium) 150 Mcg Tablet, (Reported) Entered as Reported by: NATHANAEL CALDERA on 01/02/152209 Magnesium Citrate (Magnesium Citrate) 296 Ml Solution, 296 ML PO DAILY Prescribed by: ADIEL NIEVES on 08/22/221920 Nystatin (Nystatin) 1 Each Powder.ea., 1 EACH MC QID Prescribed by: IVANNA HUANG on 06/14/172107 Pantoprazole Sodium (Pantoprazole Sodium) 40 Mg Tablet., (Reported) Entered as Reported by: KANG HASTINGS on 06/14/172020 Sulfamethoxazole/Trimethoprim (Bactrim Ds Tablet) 1 Each Tablet, 1 EACH PO BID Prescribed by: IVANNA HUANG on 06/14/172107 Review of Systems Review of Systems Constitutional: No chills, No diaphoresis, No malaise, No weakness EENTM: No Blurred Vision, No Eye Pain Respiratory: Denies Cough, Denies Orthopnea, Denies Shortness of Air Cardiovascular: Denies Chest Pain Gastrointestinal: Abdominal Pain; Denies Constipated, Denies Diarrhea Genitourinary: Denies Burning, Denies Discharge, Denies Drainage, Denies Frequency Musculoskeletal: No back pain, No joint pain Skin: No change in color, No change in hair/nails Psychiatric/Neurological: Denies Anxiety, Denies Depressed All Other Systems Reviewed Negative Unless Noted: Yes Past Pkpcnkn-Divknr-Ggfubw Hx Immunizations Up To Date PED Vaccines UTD: Yes Seasonal Allergies Seasonal Allergies: No Past Medical History Surgeries: Yes (CIRCUMCISED/RECIRCUMCISED; HERNIA REPAIR) Abdominal Respiratory: No Cardiac: No Neurological: No Reproductive Disorders: No Sexually Transmitted Disease: Yes (HERPES) Genitourinary: No Gastrointestinal: Yes Abdominal Hernia, Gastroesophageal Reflux, Hiatal Hernia Musculoskeletal: No Endocrine: Yes Hypothyroidsim HEENT: No Cancer: No Psychosocial: No Integumentary: Yes Herpes Blood Disorders: No Physical Exam Vital Signs Vital Signs - First Documented 08/22/22 16:50 Temp 36.7 Pulse 112 Resp 20 B/P (MAP) 139/90 (106) Pulse Ox 94 O2 Delivery Room Air Capillary Refill : Height/Weight/BMI Height: 5'6" Weight: 325lbs. oz. 147.018716hw; 51.00 BMI Method:Stated General Appearance: WD/WN, no apparent distress HEENT: PERRL/EOMI, normal ENT inspection, TMs normal, pharynx normal Neck: non-tender, full range of motion, supple, normal inspection Respiratory: chest non-tender, lungs clear, normal breath sounds, no respiratory distress, no accessory muscle use Cardiovascular: regular rate, rhythm, no edema, no gallop, no JVD Gastrointestinal: normal bowel sounds, non tender, soft, no organomegaly Rectal: other (Normal rectal tone. No external hemorrhoids. No impaction) Extremities: normal range of motion, non-tender, normal inspection, no pedal edema Back: normal inspection, no CVA tenderness Neurologic/Psychiatric: classification officer II-XII nml as tested, no motor/sensory deficits, alert, normal mood/affect, oriented x 3 Skin: normal color, warm/dry Progress/Results/Core Measures Results/Orders Lab Results Laboratory Tests Test 08/22/22 17:44 08/22/22 18:15 Range/Units White Blood Count 9.0 4.3-11.0 10^3/uL Red Blood Count 4.85 4.30-5.52 10^6/uL Hemoglobin 15.6 13.3-17.7 g/dL Hematocrit 45 40-54 % Mean Corpuscular Volume 93 80-99 fL Mean Corpuscular Hemoglobin 32 25-34 pg Mean Corpuscular Hemoglobin Concent 35 32-36 g/dL Red Cell Distribution Width 12.6 10.0-14.5 % Platelet Count 288 130-400 10^3/uL Mean Platelet Volume 9.4 9.0-12.2 fL Immature Granulocyte % (Auto) 0 % Neutrophils (%) (Auto) 73 42-75 % Lymphocytes (%) (Auto) 18 12-44 % Monocytes (%) (Auto) 7 0-12 % Eosinophils (%) (Auto) 2 0-10 % Basophils (%) (Auto) 0 0-10 % Neutrophils # (Auto) 6.6 1.8-7.8 10^3/uL Lymphocytes # (Auto) 1.6 1.0-4.0 10^3/uL Monocytes # (Auto) 0.6 0.0-1.0 10^3/uL Eosinophils # (Auto) 0.2 0.0-0.3 10^3/uL Basophils # (Auto) 0.0 0.0-0.1 10^3/uL Immature Granulocyte # (Auto) 0.0 0.0-0.1 10^3/uL Sodium Level 135 135-145 MMOL/L Potassium Level 4.3 3.6-5.0 MMOL/L Chloride Level 101 98-107 MMOL/L Carbon Dioxide Level 24 21-32 MMOL/L Anion Gap 10 5-14 MMOL/L Blood Urea Nitrogen 14 7-18 MG/DL Creatinine 1.16 0.60-1.30 MG/DL Estimat Glomerular Filtration Rate 80 BUN/Creatinine Ratio 12 Glucose Level 126 H 70-105 MG/DL Calcium Level 9.5 8.5-10.1 MG/DL Corrected Calcium 9.1 8.5-10.1 MG/DL Total Bilirubin 0.4 0.1-1.0 MG/DL Aspartate Amino Transf (AST/SGOT) 35 H 5-34 U/L Alanine Aminotransferase (ALT/SGPT) 48 0-55 U/L Alkaline Phosphatase 142 H 40-136 U/L Total Protein 8.9 H 6.4-8.2 GM/DL Albumin 4.5 3.2-4.5 GM/DL Lipase 37 8-78 U/L Urine Color DARK YELLOW Urine Clarity CLOUDY Urine pH 6.0 5-9 Urine Specific [place] 1.020 1.016-1.022 Urine Protein NEGATIVE NEGATIVE Urine Glucose (UA) NEGATIVE NEGATIVE Urine Ketones NEGATIVE NEGATIVE Urine Nitrite NEGATIVE NEGATIVE Urine Bilirubin NEGATIVE NEGATIVE Urine Urobilinogen 1.0 < = 1.0 MG/DL Urine Leukocyte Esterase NEGATIVE NEGATIVE Urine RBC (Auto) NEGATIVE NEGATIVE Urine RBC NONE /HPF Urine WBC 0-2 /HPF Urine Squamous Epithelial Cells 5-10 /HPF Urine Crystals NONE /LPF Urine Bacteria TRACE /HPF Urine Casts NONE /LPF Urine Mucus NEGATIVE /LPF Urine Culture Indicated NO My Orders Orders - ARIANA RUVALCABA Cbc With Automated Diff (08/22/22 17:17) Comprehensive Metabolic Panel (08/22/22 17:17) Lipase (08/22/22 17:17) Urinalysis (08/22/22 17:18) Na Phos/Na Biphos Enema (Fleet Enema Flaco (08/22/22 18:00) Abdomen/Kub 1view (08/22/22 17:58) Bisacodyl Suppository (Dulcolax Supposit (08/22/22 19:15) Medications Given in ED Current Medications Medications Dose Ordered Sig/Lu Route Start Time Stop Time Status Last Admin Dose Admin Bisacodyl 20 mg ONCE ONCE KS 08/22/22 19:15 08/22/22 19:16 DC 08/22/22 19:16 20 MG Sodium Biphosphate/ Sodium Phosphate 1 ea ONCE ONCE KS 08/22/22 18:00 08/22/22 18:01 DC 08/22/22 18:15 1 EA Vital Signs/I&O 08/22/22 08/22/22 16:50 19:39 Temp 36.7 Pulse 112 85 Resp 20 18 B/P (MAP) 139/90 (106) 144/97 Pulse Ox 94 98 O2 Delivery Room Air Room Air Blood Pressure Mean: 106 Departure Communication (PCP) Reviewed previous ER visits, outpatient records, lab work. Patient has no abdominal tenderness on palpation. Stable vital signs. Rectal exam secondary to rectal pain did not show any evidence of abscess. No evidence of external hemorrhoids. Normal rectal tone without evidence of impaction. Due to the current complaint CBC, CMP, urinalysis, abdominal x-ray was ordered. CBC, CMP was otherwise unremarkable. Urinalysis was negative for infection. abdominal x-ray was negative for obstruction or obvious stool loading throughout the colon. Attempted a Fleet enema was unsuccessful. Attempted Dulcolax suppository. Started having rectal leakage. He was requesting to go home and continue monitoring with his bowel movements. Discussed with patient that he will likely have a bowel movement. If no bowel movement over the next 24 hours recommend magnesium citrate bottle. If no improvement recommend Fleet enema and continue Dulcolax daily. Discussed high-fiber diet. Drink plenty of fluids. No acute abdomen. Patient does not appear in acute distress. If any worsening symptoms return back to ED. follow-up with your PCP in 2 to 3 days for evaluation Impression Primary Impression: Constipation Disposition: 01 HOME, SELF-CARE Condition: Stable Departure-Patient Inst. Decision time for Depature: 19:20 Referrals: ARLET BRADEN MD (PCP/Family) Primary Care Physician Patient Instructions: Constipation, Adult ED Add. Discharge Instructions: If no bowel movement by tomorrow. Recommend drinking a full bottle of magnesium citrate in a 24-hour period. If no bowel movement after this. Recommend 10 mg oral Dulcolax with Fleet enema as needed. Continue drinking plenty of fluids. High-fiber diet such as Metamucil All discharge instructions reviewed with patient and/or family. Voiced unde rstanding. Scripts Magnesium Citrate (Magnesium Citrate) 296 Ml Solution 296 ML PO DAILY, #1 EA Prov: ARIANA RUVALCABA 08/22/22 ARIANA RUVALCABA Aug 22, 2022 18:03
[2022-08-22 18:04] LABS: ALBUMIN 4.5 GM/DL (3.2-4.5); POTASSIUM 4.3 MMOL/L (3.6-5.0)
[2022-08-22 18:05] LABS: CALCIUM 9.5 MG/DL (8.5-10.1)
[2022-08-22 18:07] LABS: TOTAL PROTEIN 8.9 GM/DL (6.4-8.2)
[2022-08-22 18:08] LABS: BILIRUBIN,TOTAL 0.4 MG/DL (0.1-1.0)
[2022-08-22 18:10] LABS: CREATININE SERUM 1.16 MG/DL (0.60-1.30)
--- NOTE | 2022-08-22 18:19 | Diagnostic Imaging Report ---
INDICATION: Diffuse pain. FINDINGS: Supine abdominal radiograph showed clips in the gallbladder fossa. No abnormal fecal loading. No dilated small or large bowel. No obstructive features. No suspicious calcifications. The right pelvic calcification is believed phlebolith. IMPRESSION: No findings of bowel obstruction. No gross elevation of the fecal load. No findings of impaction or obstruction. No acute appearing abnormality. Dictated by: Dictated on workstation # [id number]
[2022-08-22 18:26] LABS: BILIRUBIN,URINE NEGATIVE (NEGATIVE); CLARITY,URINE CLOUDY; COLOR,URINE DARK YELLOW; GLUCOSE, URINE (UA) NEGATIVE (NEGATIVE); KETONES,URINE NEGATIVE (NEGATIVE); LEUKOCYTE ESTERASE ,URINE NEGATIVE (NEGATIVE); NITRITE,URINE NEGATIVE (NEGATIVE); PROTEIN,URINE NEGATIVE (NEGATIVE)
[2022-08-22 18:34] LABS: BACTERIA,URINE TRACE /HPF; WBC,URINE 0-2 /HPF
[2022-08-22] MEDS ORDERED: BISACODYL 10 MG SUPP (DULCOLAX) PR ONE (19:15)
[2022-08-22] MEDS ORDERED: MAGN296S68 PO (19:21)
[2022-08-22 19:39] VITALS: BP 144/97
== END 2022-08-22 19:40 | disposition home or self-care (01) ==
LOC: EDUNIT# 16:41 → ER 16:43
DX: K59.00 Constipation, unspecified (principal); K62.89 Other specified diseases of anus and rectum
CPT/HCPCS: 36415; 74018; 80053; 81000; 83690; 85025; 99283

== ENCOUNTER 2022-09-29 15:56 | Emergency (ER) | payer MEDICAID, MEDICARE ==
[~2022-09-29] VITALS: Ht 167.7 cm; Wt 153.6 kg
[~2022-09-29 15:56] MED LIST changes: +MAGN296S68 PO
--- NOTE | 2022-09-29 16:25 | ED GU-Female ---
General Chief Complaint: - Reproductive Stated Complaint: PAIN WHEN URINATING Source: patient Exam Limitations: no limitations History of Present Illness Date Seen by Provider: Sep 29, 2022 Time Seen by Provider: 16:23 Initial Comments Patient is a 42-year-old male who presents ED mother for pain with urination. Patient states over the past week he has noted pain with urination and frequent urination. States when he sits down to urinate starts having discomfort. Continues while he urinates. Patient denies of any abdominal pain, fever, vomiting, diarrhea, testicular pain. Denies history of urinary tract infection. States he is circumcised. Patient denies taking thing for the pain. Denies any penile discharge. Normal bowel movements. Patient denies of any peritoneal pain. Allergies and Home Medications Allergies Coded Allergies: iodine (Unverified Allergy, Intermediate, HIVES, 04/22/06) PT. AND FAMILY PRESENT, BELIEVE THE HIVES WERE AFTER AN IV IODINE PROCEDURE AND NOT TOPICAL Patient Home Medication List Home Medication List Reviewed: Yes Cephalexin (Cephalexin) 500 Mg Tablet, 500 MG PO BID Prescribed by: ADIEL NIEVES on 09/29/22 1719 Colestipol HCl (Colestipol HCl) 1 Gm Tablet, (Reported) Entered as Reported by: KANG HASTINGS on 06/14/172020 Levofloxacin (Levaquin) 500 Mg Tablet, 500 MG PO DAILY Prescribed by: ALEXANDRE MUNSON on 04/27/19 112 Levothyroxine Sodium (Levothyroxine Sodium) 150 Mcg Tablet, (Reported) Entered as Reported by: NATHANAEL CALDERA on 01/02/15 221 Magnesium Citrate (Magnesium Citrate) 296 Ml Solution, 296 ML PO DAILY Prescribed by: ADIEL NIEVES on 08/22/22 192 Nystatin (Nystatin) 1 Each Powder.ea., 1 EACH MC QID Prescribed by: IVANNA HUANG on 06/14/172107 Pantoprazole Sodium (Pantoprazole Sodium) 40 Mg Tablet., (Reported) Entered as Reported by: KANG HASTINGS on 06/14/172020 Sulfamethoxazole/Trimethoprim (Bactrim Ds Tablet) 1 Each Tablet, 1 EACH PO BID Prescribed by: IVANNA HUANG on 06/14/172107 Review of Systems Review of Systems Constitutional: No chills, No diaphoresis, No malaise, No weakness EENTM: No ear pain, No blurred vision Respiratory: No cough, No dyspnea on exertion, No orthopnea, No short of breath, No stridor, No wheezing Cardiovascular: No chest pain Gastrointestinal: No abdominal pain, No diarrhea, No nausea, No vomiting Genitourinary: burning; denies discharge; dysuria, frequency Musculoskeletal: No back pain, No joint pain All Other Systemes Reviewed Negative Unless Noted: Yes Past Nszmszq-Fypbpr-Bsjofo Hx Patient Social History Tobacco Use?: No Substance use?: No Alcohol Use?: No Immunizations Up To Date PED Vaccines UTD: Yes Seasonal Allergies Seasonal Allergies: No Past Medical History Surgeries: Yes (CIRCUMCISED/RECIRCUMCISED; HERNIA REPAIR) Abdominal Respiratory: No Cardiac: No Neurological: No Reproductive Disorders: No Sexually Transmitted Disease: Yes (HERPES) Genitourinary: No Gastrointestinal: Yes Abdominal Hernia, Gastroesophageal Reflux, Hiatal Hernia Musculoskeletal: No Endocrine: Yes Hypothyroidsim HEENT: No Cancer: No Psychosocial: No Integumentary: Yes Herpes Blood Disorders: No Physical Exam Vital Signs Vital Signs - First Documented 09/29/22 16:07 Temp 36.8 Pulse 85 B/P (MAP) 159/95 (116) Pulse Ox 97 O2 Delivery Room Air Capillary Refill : Height, Weight, BMI Height: 5'6" Weight: 325lbs. oz. 147.558638gb; 51.00 BMI Method:Stated General Appearance: WD/WN, no apparent distress HEENT: PERRL/EOMI, normal ENT inspection, TMs normal, pharynx normal Neck: non-tender, full range of motion, supple, normal inspection Cardiovascular: regular rate, rhythm, no edema, no gallop, no JVD Respiratory: chest non-tender, lungs clear, normal breath sounds, no respiratory distress, no accessory muscle use Gastrointestinal: normal bowel sounds, non tender, soft, no organomegaly Pelvic: normal external exam Back: normal inspection, no CVA tenderness, no vertebral tenderness Extremities: normal range of motion, non-tender Neurologic/Psychiatric: photolithographer II-XII nml as tested, no motor/sensory deficits, alert, normal mood/affect, oriented x 3 Skin: normal color, warm/dry Progress/Results/Core Measures Suspected Sepsis SIRS Temperature: Pulse: Respiratory Rate: Blood Pressure / Mean: Results/Orders Lab Results Laboratory Tests Test 09/29/22 16:25 Range/Units Urine Color YELLOW Urine Clarity CLEAR Urine pH 6.0 5-9 Urine Specific [place] >=1.030 1.016-1.022 Urine Protein 1+ H NEGATIVE Urine Glucose (UA) NEGATIVE NEGATIVE Urine Ketones NEGATIVE NEGATIVE Urine Nitrite NEGATIVE NEGATIVE Urine Bilirubin NEGATIVE NEGATIVE Urine Urobilinogen 1.0 < = 1.0 MG/DL Urine Leukocyte Esterase 1+ H NEGATIVE Urine RBC (Auto) 1+ H NEGATIVE Urine RBC >100 H /HPF Urine WBC 10-25 H /HPF Urine Squamous Epithelial Cells RARE /HPF Urine Crystals PRESENT H /LPF Urine Calcium Oxalate Crystals RARE H /LPF Urine Bacteria FEW H /HPF Urine Casts NONE /LPF Urine Mucus SMALL H /LPF Urine Culture Indicated YES My Orders Orders - ARIANA RUVALCABA Ua Culture If Indicated (09/29/22 16:04) Urine Culture (09/29/22 16:25) Ceftriaxone Iv/Im (Rocephin Iv/Im) (09/29/22 17:30) Lidocaine 1% Inj 20 Ml (Xylocaine 1% Inj (09/29/22 17:30) Medications Given in ED Current Medications Medications Dose Ordered Sig/Lu Route Start Time Stop Time Status Last Admin Dose Admin Ceftriaxone Sodium 1,000 mg ONCE ONCE IM 09/29/22 17:30 09/29/22 17:31 09/29/22 17:26 1,000 MG Lidocaine HCl 2.1 ml ONCE ONCE INJ 09/29/22 17:30 09/29/22 17:31 09/29/22 17:25 2.1 ML Vital Signs/I&O 09/29/22 16:07 Temp 36.8 Pulse 85 B/P (MAP) 159/95 (116) Pulse Ox 97 O2 Delivery Room Air Capillary Refill : Departure Communication (PCP) Patient with urinary symptoms over the past week. Burning with urination with frequent urination. Patient is afebrile. Patient does not appear toxic or septic. Patien with no abdominal tenderness. Concerning for urinary tract infection. Urinalysis was ordered which was positive for UTI. Patient Was then given 1 g of IM Rocephin. Will discharge with Keflex. Patient is currently asymptomatic. Patient will be discharge with strict return precautions. Follow-up with PCP in 4 to 5 days with urinalysis. If any worsening symptoms such as abdominal pain, fever, chills to return back to ED. Patient and mother agree with plan of action Impression Primary Impression: Urinary tract infection Disposition: 01 HOME, SELF-CARE Condition: Stable Departure-Patient Inst. Decision time for Depature: 17:18 Referrals: ARLET BRADEN MD (PCP/Family) Primary Care Physician Patient Instructions: Urinary Tract Infection, Adult (DC) Add. Discharge Instructions: Follow-up with your primary care physician 4 to 5 days with reevaluation with urinalysis. If symptoms worsen such as fever, abdominal pain, chills return back to ED. All discharge instructions reviewed with patient and/or family. Voiced understanding. Scripts Cephalexin (Cephalexin) 500 Mg Tablet 500 MG PO BID for 7 Days, #14 TAB Prov: ARIANA RUVALCABA 09/29/22 ARIANA RUVALCABA Sep 29, 2022 16:25
[2022-09-29 16:31] LABS: BILIRUBIN,URINE NEGATIVE (NEGATIVE); CLARITY,URINE CLEAR; COLOR,URINE YELLOW; GLUCOSE, URINE (UA) NEGATIVE (NEGATIVE); KETONES,URINE NEGATIVE (NEGATIVE); LEUKOCYTE ESTERASE ,URINE 1+ (NEGATIVE); NITRITE,URINE NEGATIVE (NEGATIVE); PROTEIN,URINE 1+ (NEGATIVE)
[2022-09-29 17:07] LABS: RBC,URINE >100 /HPF
[2022-09-29 17:08] LABS: BACTERIA,URINE FEW /HPF; CALCIUM OXALATE CRYSTALS,UR RARE /LPF; SQUAMOUS EPITHELIAL CELL,UR RARE /HPF
[2022-09-29] MEDS ORDERED: CEPH500T PO (17:19)
[2022-09-29] MEDS ORDERED: LIDOCAINE 1% INJ 20 ML VIAL INJ ONE (17:30)
[2022-09-29] MEDS ORDERED: cefTRIAXone 1,000 MG VIAL (for IV or IM) IM ONE (17:30)
[2022-09-29 17:37] VITALS: BP 150/85
== END 2022-09-29 17:36 | disposition home or self-care (01) ==
LOC: EDUNIT# 15:56 → ER 15:59
DX: N39.0 Urinary tract infection, site not specified (principal)
CPT/HCPCS: 81000; 87088; 99284